=== PATIENT | male | born 1955 | race Caucasian/White ===

== ENCOUNTER → 2019-05-14 | Outpatient (CLI) | payer OTHER ==
[~2019-05-14] MED LIST: ALBU8.5H8 INH; AZIT500T10 PO; CEFD300C37 PO; NONE PER PT; PRED-402 PO
== END | disposition home or self-care (01) ==
LOC: STAR 13:51
PROVIDERS: ATTEND Urology
DX: Z01.818 Encounter for other preprocedural examination (principal); R97.20 Elevated prostate specific antigen [PSA]
CPT/HCPCS: 93005

== ENCOUNTER 2019-05-21 15:43 | Day surgery (SDC) | payer OTHER ==
[~2019-05-21] VITALS: Ht 176.5 cm; Wt 82.3 kg
[2019-05-21 16:09] VITALS: BP 156/91
[2019-05-21] MEDS ORDERED: LACTATED RINGERS 1,000 ML IV SCH (16:10)
[2019-05-21] MEDS ORDERED: HYDROmorphone 2 MG/ML, 1ML IVPush PRN (17:30)
[2019-05-21] MEDS ORDERED: FENTANYL PF 100 MCG/2ML IV PRN (17:30)
[2019-05-21] MEDS ORDERED: MEPERIDINE/PF 25MG/ML,1ML IVPush PRN (17:30)
[2019-05-21] MEDS ORDERED: PROMETHAZINE 25 MG/ML, 1ML IV PRN (17:30)
[2019-05-21] MEDS ORDERED: hydrALAzine 20 MG/ML, 1ML IV PRN (17:30)
[2019-05-21] MEDS ORDERED: HALOPERIDOL 5 MG/ML IV PRN (17:30)
[2019-05-21] MEDS ORDERED: OXYcodone 5 MG/5 ML ORAL.SOL UDC PO PRN (17:30)
[2019-05-21] MEDS ORDERED: LABETALOL 5MG/ML, 20ML IV PRN (17:30)
[2019-05-21] MEDS ORDERED: FENTANYL PF 100 MCG/2ML ONE (18:10)
[2019-05-21] MEDS ORDERED: CIPROFLOXACIN/PMX 400MG/200ML 200 ML ONE (18:18)
[2019-05-21] MEDS ORDERED: ONDANSETRON 2MG/ML, 2ML ONE (18:25)
[2019-05-21] MEDS ORDERED: DEXAMETHASONE 4 MG/ML, 1ML ONE (18:25)
[2019-05-21] MEDS ORDERED: CEFAZOLIN 1,000 MG ONE (18:25)
[2019-05-21] MEDS ORDERED: PROPOFOL 10 MG/ML, 20ML ONE (18:25)
== END 2019-05-21 20:38 | disposition home or self-care (01) ==
LOC: OR 15:43
PROVIDERS: ATTEND Urology
DX: R97.20 Elevated prostate specific antigen [PSA] (principal); N41.0 Acute prostatitis; Z87.891 Personal history of nicotine dependence
CPT/HCPCS: 55700; 88305; J0690; J0744; J1100; J2405; J2704; J3010; J7120

== ENCOUNTER → 2019-07-09 | Outpatient (CLI) | payer OTHER ==
[~2019-07-09] MED LIST changes: +OMNIPAQUE 350 MG/ML, 100ML BOTTLE ONE
[2019-07-09 10:22] LABS: CREATININE 1.22 mg/dL (0.7-1.3)
== END | disposition home or self-care (01) ==
LOC: RAD 09:33
PROVIDERS: ATTEND Urology
DX: R97.20 Elevated prostate specific antigen [PSA] (principal)
CPT/HCPCS: 36415; 74177; 82565; Q9967

== ENCOUNTER 2020-07-19 12:06 | Inpatient (IN) | payer OTHER ==
[~2020-07-19] VITALS: Ht 175.3 cm; Wt 85.0 kg
[~2020-07-19 12:06] MED LIST changes: -OMNIPAQUE 350 MG/ML, 100ML BOTTLE ONE
--- NOTE | 2020-07-19 13:03 | NUR ---
FIRST CONTACT W PATIENT. PT SITTING UP IN [facility], NAD NOTED. PT REPORTS RUE SWELLING/REDNESS X FOUR DAYS WHICH REPORTEDLY "STARTED AT MY NECK THEN RADIATED DOWN". RUE MARKEDLY SWOLLEN, NON-TENDER TO PALPATION AND WARM TO TOUCH. STRONG/REGULAR RADIAL PULSES. LEFT NECK APPEARS SWOLLEN. NON-TENDER; AIRWAY PATENT AND PT IS MANAGING SECRETIONS. NO OPEN WOUNDS NOTED. PT DENIES FEVER/N/V. NOT TACHY NOR TACHYPNEIC. BP/SPO2 MONITORING IN PLACE. AT BEDSIDE. AWAITING ORDERS.
[2020-07-19] MEDS ORDERED: LISI2.5T PO (13:08)
--- NOTE | 2020-07-19 13:45 | NUR ---
TASK RN: PT RESTING ON GURNEY. NADN. NGUYEN.
[2020-07-19 13:48] LABS: BASOPHILS % (AUTO) 1 % (0-1); EOSINOPHILS % (AUTO) 2 % (1-7); LYMPHOCYTES % (AUTO) 22 % (22-44); MEAN CORPUSCULAR HEMOGLOBIN 33.3 pg (27.5-34.5); MEAN CORPUSCULAR HGB CONC 34.1 g/dL (33.2-36.2); MEAN PLATELET VOLUME 6.9 fL (7.4-10.4); MONOCYTES % (AUTO) 8 % (2-9); NEUTROPHILS % (AUTO) 67 % (42-75); PLATELET COUNT 252 x10^3/uL (130-400); RED CELL DISTRIBUTION WIDTH 13.6 % (9.4-14.8)
[2020-07-19 13:49] LABS: MD NO
[2020-07-19 13:58] LABS: ALANINE AMINOTRANSFERASE 32 U/L (12-78); ALBUMIN 3.7 g/dL (3.4-5.0); ANION GAP 7 mmol/L (5-15); CALCIUM 8.4 mg/dL (8.5-10.1); CHLORIDE 110 mmol/L (98-107); CREATININE 1.03 mg/dL (0.7-1.3)
[2020-07-19 14:01] LABS: ALKALINE PHOSPHATASE 59 U/L (45-117); BILIRUBIN,TOTAL 0.4 mg/dL (0.2-1.0); TOTAL PROTEIN 7.1 g/dL (6.4-8.2)
--- NOTE | 2020-07-19 14:40 | NUR ---
ERP AT BEDSIDE FOR RECHECK.
[2020-07-19] MEDS ORDERED: HEPARIN 25,000 UNITS/250ML PMX 250 ML ONE (14:54)
[2020-07-19] MEDS ORDERED: HEPARIN 5,000 UNITS/ML, 1ML ONE (14:54)
[2020-07-19 15:12] LABS: INTERNATIONAL NORMALIZED RATIO 1.1 (0.93-1.1); PROTHROMBIN TIME 11.8 Seconds (9.6-11.5)
[2020-07-19] MEDS ORDERED: HEPARIN 25,000 UNITS/250ML PMX 250 ML IV PRN (15:30)
[2020-07-19] MEDS ORDERED: HEPARIN 5,000 UNITS/ML, 1ML IV PRN (15:30)
[2020-07-19] MEDS ORDERED: HEPARIN 5,000 UNITS/ML, 1ML IV ONE (15:30)
--- NOTE | 2020-07-19 15:37 | NUR ---
REPORT TO BEAR RN
[2020-07-19 16:33] VITALS: BP 132/87
[2020-07-19] MEDS ORDERED: ACETAMINOPHEN 325 MG TABLET PO PRN (17:30)
[2020-07-19] MEDS ORDERED: ONDANSETRON ODT 4 MG PO PRN (17:30)
[2020-07-19] MEDS ORDERED: ONDANSETRON 2MG/ML, 2ML IVPush PRN (17:30)
[2020-07-19 21:00] VITALS: BP 143/82
[2020-07-20 01:56] VITALS: BP 144/81
[2020-07-20 04:55] LABS: BASOPHILS % (AUTO) 1 % (0-1); EOSINOPHILS % (AUTO) 4 % (1-7); LYMPHOCYTES % (AUTO) 31 % (22-44); MEAN CORPUSCULAR HGB CONC 34.3 g/dL (33.2-36.2); MEAN PLATELET VOLUME 6.9 fL (7.4-10.4); MONOCYTES % (AUTO) 10 % (2-9); NEUTROPHILS % (AUTO) 53 % (42-75); PLATELET COUNT 216 x10^3/uL (130-400); RED BLOOD COUNT 4.56 x10^6/uL (4.38-5.82); RED CELL DISTRIBUTION WIDTH 13.4 % (9.4-14.8)
[2020-07-20 04:56] LABS: MD NO
[2020-07-20 05:02] LABS: ALBUMIN 3.5 g/dL (3.4-5.0); ANION GAP 8 mmol/L (5-15); CALCIUM 8.2 mg/dL (8.5-10.1); CHLORIDE 111 mmol/L (98-107)
[2020-07-20 05:07] LABS: ALANINE AMINOTRANSFERASE 27 U/L (12-78); ALKALINE PHOSPHATASE 51 U/L (45-117); BILIRUBIN,TOTAL 0.8 mg/dL (0.2-1.0); CHOL/HDL RATIO 3.3; CHOLESTEROL, TOTAL 158 mg/dL (140-239); CREATININE 0.93 mg/dL (0.7-1.3); HDL CHOL % 30 % (26-37); HDL CHOLESTEROL (DIRECT) 48 mg/dL (40-60); LDL CHOLESTEROL,CALCULATED 96 mg/dL (54-169); TOTAL PROTEIN 6.7 g/dL (6.4-8.2); TRIGLYCERIDES 69 mg/dL (50-200); VLDL CHOLESTEROL 14 mg/dL (0-25)
[2020-07-20 06:58] VITALS: BP 125/71
[2020-07-20] MEDS ORDERED: RIVAROXABAN 15 MG TABLET PO SCH (12:30)
[2020-07-20 12:46] VITALS: BP 129/81
[2020-07-20] MEDS ORDERED: RIVA15TA PO (12:55)
== END 2020-07-20 15:10 | disposition home or self-care (01) | DRG 301 ==
LOC: ED 15:40 → EDIP 15:42 → 3N 16:21 → DCLOUNGE 07-20 15:06
PROVIDERS: ADMIT Internal Medicine; ATTEND Internal Medicine
DX: I82.622 Acute embolism and thrombosis of deep veins of left upper extremity (principal); I82.B19 Acute embolism and thrombosis of unspecified subclavian vein; I10 Essential (primary) hypertension; Z20.822 Contact with and (suspected) exposure to COVID-19; J44.9 Chronic obstructive pulmonary disease, unspecified; Z87.891 Personal history of nicotine dependence; Z83.3 Family history of diabetes mellitus; Z72.89 Other problems related to lifestyle
CPT/HCPCS: 36415; 71045; 80053; 80061; 85025; 85520; 85610; 85651; 87635; 93005; 96374; 99285; G0378; J1644

== ENCOUNTER 2020-10-11 09:59 | Observation (INO) | payer OTHER ==
[~2020-10-11] VITALS: Ht 176.5 cm; Wt 78.5 kg
[~2020-10-11 09:59] MED LIST changes: +LISI2.5T PO; +RIVA15TA PO
--- NOTE | 2020-10-11 10:21 | NUR ---
SWELLING AND PAIN IN LEFT SIDE NECK STARTED 07/19/2020 DUE TO DX OF BLOOD CLOTS. TODAY PRESENTS WITH SWELLING AND PAIN IN LEFT NECK WITH MASSES. PT POSTIONED TO COMFORT. VSS. RAMIREZ. AT BEDSIDE. DR. FORD AT BEDSIDE FOR EVALUATION. CARIOTID PULSE +2.
--- NOTE | 2020-10-11 10:42 | NUR ---
REPORT FROM MOOKIE MARROQUIN FOR TRANSFER OF PATIENT CARE. PATIENT CONNECTED TO [employer] EQUIPMENT SUPERVISOR, PATRICK RAMIREZ, AT BEDSIDE.
--- NOTE | 2020-10-11 10:50 | NUR ---
20 GAUGE IV STARTED RIGHT AC, BLOOD COLLECTED, LABELLED AND SENT TO LAB.
[2020-10-11 11:00] LABS: BASOPHILS % (AUTO) 2 % (0-1); EOSINOPHILS % (AUTO) 3 % (1-7); LYMPHOCYTES % (AUTO) 34 % (22-44); MEAN PLATELET VOLUME 6.7 fL (7.4-10.4); MONOCYTES % (AUTO) 9 % (2-9); NEUTROPHILS % (AUTO) 52 % (42-75); PLATELET COUNT 253 x10^3/uL (130-400); RED BLOOD COUNT 4.65 x10^6/uL (4.38-5.82); RED CELL DISTRIBUTION WIDTH 14.1 % (9.4-14.8)
[2020-10-11] MEDS ORDERED: SODIUM CHLORIDE FLUSH 10ML SYR IVF ONE ×2 (11:00→13:30)
[2020-10-11 11:12] LABS: ALANINE AMINOTRANSFERASE 28 U/L (12-78); ALBUMIN 3.9 g/dL (3.4-5.0); ANION GAP 4 mmol/L (5-15); CALCIUM 8.5 mg/dL (8.5-10.1); CHLORIDE 108 mmol/L (98-107); CREATININE 1.24 mg/dL (0.7-1.3)
[2020-10-11 11:14] LABS: ALKALINE PHOSPHATASE 51 U/L (45-117); BILIRUBIN,TOTAL 0.7 mg/dL (0.2-1.0); TOTAL PROTEIN 7.5 g/dL (6.4-8.2)
[2020-10-11 11:20] LABS: MD NO
--- NOTE | 2020-10-11 11:41 | NUR ---
PATIENT TO CT SCAN.
--- NOTE | 2020-10-11 11:51 | NUR ---
PATIENT BACK FROM CT, RESTING IN [facility] [place], [place], DENIES PAIN, AT BEDSIDE, CALL LIGHT WITHIN REACH, NO FURTHER NEEDS AT THIS TIME. WAITING FOR CT RESULTS.
[2020-10-11] MEDS ORDERED: OMNIPAQUE 350 MG/ML, 100ML BOTTLE ONE ×2 (11:54→14:20)
[2020-10-11] MEDS ORDERED: SODIUM CHLORIDE 0.9% 1,000 ML IV ONE (13:30)
--- NOTE | 2020-10-11 13:48 | NUR ---
PATIENT SITTING IN GURNEY, WATCHING TV, NADN, VSS, AT BEDSIDE, CALL LIGHT WITHIN REACH. NO FURTHER NEEDS AT THIS TIME. PATIENT UP FOR RECHECK.
[2020-10-11] MEDS ORDERED: SODIUM CHLORIDE FLUSH 10ML SYR IVF PRN (15:00)
--- NOTE | 2020-10-11 15:40 | NUR ---
SM AT BEDSIDE FOR ADMISSION EVALUATION.
--- NOTE | 2020-10-11 15:43 | NUR ---
ATTEMPTED TO CALL REPORT.
--- NOTE | 2020-10-11 15:51 | NUR ---
REPORT CALLED TO MOOKIE LACEY FOR TRANSFER OF PATIENT CARE.
--- NOTE | 2020-10-11 16:10 | NUR ---
PATIENT TRANSFERRED IN STABLE CONDITION TO FLOOR VIA GURNEY WITH NON CLINICAL ADVISOR, AT SIDE.
[2020-10-11] MEDS ORDERED: ACETAMINOPHEN 325 MG TABLET PO PRN (16:30)
[2020-10-11] MEDS ORDERED: morphine SULFATE 10 MG/ML, 1ML IVPush PRN (16:30)
[2020-10-11] MEDS ORDERED: hydrALAzine 20 MG/ML, 1ML IVPush PRN (16:30)
[2020-10-11] MEDS ORDERED: GUAIFENESIN/DM 200-20MG, 10ML UDC PO PRN (16:30)
[2020-10-11] MEDS ORDERED: ONDANSETRON 2MG/ML, 2ML IVPush PRN (16:30)
[2020-10-11] MEDS ORDERED: POLYETHYLENE GLYCOL 17 GM PACKET PO PRN (16:30)
[2020-10-11 17:37] VITALS: BP 129/76
[2020-10-11 19:08] VITALS: BP 134/85
[2020-10-11] MEDS: CIPROFLOXACIN 500 MG TABLET PO SCH (21:23)
[2020-10-12 00:51] VITALS: BP 124/75
[2020-10-12 05:24] LABS: BASOPHILS % (AUTO) 1 % (0-1); EOSINOPHILS % (AUTO) 4 % (1-7); LYMPHOCYTES % (AUTO) 19 % (22-44); MEAN CORPUSCULAR HEMOGLOBIN 32.6 pg (27.5-34.5); MEAN CORPUSCULAR HGB CONC 33.6 g/dL (33.2-36.2); MEAN PLATELET VOLUME 6.8 fL (7.4-10.4); MONOCYTES % (AUTO) 9 % (2-9); NEUTROPHILS % (AUTO) 67 % (42-75); PLATELET COUNT 248 x10^3/uL (130-400); RED BLOOD COUNT 4.74 x10^6/uL (4.38-5.82)
[2020-10-12 05:25] LABS: MD NO
[2020-10-12 05:36] LABS: ALBUMIN 3.6 g/dL (3.4-5.0); ANION GAP 5 mmol/L (5-15); CALCIUM 8.3 mg/dL (8.5-10.1); CHLORIDE 110 mmol/L (98-107)
[2020-10-12 05:40] LABS: ALANINE AMINOTRANSFERASE 23 U/L (12-78); ALKALINE PHOSPHATASE 45 U/L (45-117); BILIRUBIN,TOTAL 0.9 mg/dL (0.2-1.0); TOTAL PROTEIN 6.8 g/dL (6.4-8.2)
[2020-10-12 06:50] VITALS: BP 126/70
[2020-10-12] MEDS: LISINOPRIL 5 MG TABLET PO SCH (07:52)
[2020-10-12] MEDS: CIPROFLOXACIN 500 MG TABLET PO SCH ×2 (07:52→20:20)
[2020-10-12 12:11] LABS: INTERNATIONAL NORMALIZED RATIO 1.09 (0.93-1.1); PROTHROMBIN TIME 11.6 Seconds (9.6-11.5)
[2020-10-12 13:21] VITALS: BP 118/72
[2020-10-12 19:56] VITALS: BP 133/74
[2020-10-13 00:51] VITALS: BP 114/74
[2020-10-13 07:36] VITALS: BP 131/78
[2020-10-13] MEDS ORDERED: FLUMAZENIL 0.1 MG/1 ML, 5ML ONE (08:20)
[2020-10-13] MEDS ORDERED: NALOXONE 1 MG/ML, 2ML ONE (08:20)
[2020-10-13] MEDS ORDERED: FENTANYL PF 100 MCG/2ML ONE ×2 (08:20)
[2020-10-13] MEDS ORDERED: MIDAZOLAM 1 MG/ML, 5ML ONE (08:20)
[2020-10-13 09:30] VITALS: BP 114/73
[2020-10-13] MEDS ORDERED: CYCL5TAB PO (11:01)
[2020-10-13] MEDS: LISINOPRIL 5 MG TABLET PO SCH (13:19)
[2020-10-13] MEDS: CIPROFLOXACIN 500 MG TABLET PO SCH (13:21)
== END 2020-10-13 13:56 | disposition home or self-care (01) ==
LOC: ED 11:25 → INTOOBSV 14:59 → EDIP 14:59 → 3N 16:11
PROVIDERS: ADMIT Internal Medicine; ATTEND Hospitalist
DX: I82.622 Acute embolism and thrombosis of deep veins of left upper extremity (principal); R59.1 Generalized enlarged lymph nodes; I10 Essential (primary) hypertension; J43.9 Emphysema, unspecified; K76.9 Liver disease, unspecified; N40.0 Benign prostatic hyperplasia without lower urinary tract symptoms; Z87.891 Personal history of nicotine dependence; Z79.899 Other long term (current) drug therapy
CPT/HCPCS: 36415; 38505; 70498; 71260; 74177; 77012; 80053; 83735; 84100; 85025; 85610; 88305; 93005; 99156; 99157; 99285; G0378; J2250; J3010; Q9967; 88341; 88342; J2310